=== PATIENT | female | born 1945 | race Caucasian/White ===

== ENCOUNTER 2016-09-19 07:40 | Observation (INO) | payer OTHER, BC ==
--- NOTE | 2016-09-19 07:56 | CPEKG ---
Heart Rate: 56 RR Interval: 1071 P-R Interval: 156 QRSD Interval: 94 QT Interval: 440 QTC Interval: 425 P [place]: 37 QRS [place]: -29 T Wave [place]: 129 EKG Severity - ABNORMAL ECG - EKG Impression: SINUS RHYTHM EKG Impression: PROBABLE LEFT ATRIAL ABNORMALITY EKG Impression: LVH W/ REPOL ABNORMALITIES, POSSIBLE ISCHEMIA Electronically Signed By: Junior Ford 19-Sep-2016 09:38:50
--- NOTE | 2016-09-19 08:03 | EDPHY ---
H & P Time Seen by Provider: 09/19/16 08:01 HPI/ROS: Chief complaint. Chest pain HPI. 71-year-old female presents emergency department with left scapular pain that has been present for several weeks. Yesterday became worse. Previously ibuprofen was helping but yesterday and today it was with an inadequate relief. Today she has radiation to the fingers of her left hand especially fingers 3 through 5. Her discomfort in the left shoulder blade is worse with standing but not worse with exertion or breathing. Today it is increased with range of motion about the left shoulder. She does have occasional anterior chest discomfort which he has had for many years and has not been worse or more frequent over the past 3 weeks. She is not short of breath. Slight nausea yesterday and today. No unusual leg pain or swelling. She had a normal stress test 3 years ago. ROS Constitutional. no fever/chills, no weakness Eyes. no problems with vision ENT. no sore throat, no nasal drainage Cardiovascular. no chest pain Respiratory. no shortness of breath, no cough Abdominal. no abdominal pain, no nausea/vomiting, no diarrhea . no problems urinating MS. Left scapular pain that radiates to the fingers of the left hand Skin. no rash Lymph. no swollen glands Neuro. no headache, no dizziness, no difficulty walking or with speech Past Medical/Surgical History: Past medical history is significant for rheumatic fever, hypertension, insulin- dependent diabetes, breast cancer Social History: , nonsmoker, no alcohol Smoking Status: Never smoked Physical Exam: General Appearance: Alert pleasant well-developed female mild distress vital signs are stable Eyes: Pupils equal and round no pallor or injection. ENT, Mouth: Mucous membranes are moist. Respiratory: There are no retractions, lungs are clear to auscultation. Cardiovascular: Regular rate and rhythm. Gastrointestinal: Abdomen is soft and nontender, no masses, bowel sounds normal. Neurological: Awake and alert, sensory and motor exams grossly normal. Skin: Warm and dry, no rashes. Musculoskeletal: Neck is supple nontender. No particular tenderness to palpation of the left scapula. Extremities symmetrical, full range of motion. Psychiatric: Patient is oriented X 3, there is no agitation. Constitutional: Initial Vital Signs Temperature (C) 36.9 C 09/19/16 07:43 Heart Rate 60 09/19/16 07:43 Respiratory Rate 18 09/19/16 07:43 Blood Pressure 195/94 H 09/19/16 07:43 O2 Sat (%) 96 09/19/16 07:43 O2 Delivery Mode Room Air Allergies/Adverse Reactions: Penicillins Allergy (Verified 09/19/16 11:36) Hives Home Medications: Medication Instructions Recorded Aspirin [Aspirin 81mg (*)] 81 mg PO DAILY 09/19/16 CHOLECALCIFEROL [VITAMIN D] 400 unit PO DAILY 09/19/16 Calcium [HI-JERARDO] 500 mg PO DAILY 09/19/16 Doxycycline Monohydrate 100 mg PO DAILY 09/19/16 Exemestane [Aromasin] 25 mg PO DAILY 09/19/16 Fenofibrate [Tricor 48 MG (RX)] 48 mg PO DAILY 09/19/16 Insulin Detemir [Levemir Flextouch] 48 - 51 unit SQ HS 09/19/16 Insulin Lispro [Humalog Kwikpen 15 - 35 units SQ TIDMEAL 09/19/16 U-100] Krill Oil 500 mg PO DAILY 09/19/16 Lisinopril [Zestril 40 mg (*)] 40 mg PO BID 09/19/16 Metoprolol Succinate Xr [Toprol Xl 100 mg PO DAILY 09/19/16 100 mg (*)] Simvastatin 20 mg PO HS 09/19/16 Spironolactone [Aldactone 25 MG 12.5 mg PO DAILY 09/19/16 (*)] metFORMIN HCL [Glucophage 500 mg 1,000 mg PO BID 09/19/16 (*)] Medical Decision Making - Diagnostics EKG Interpretation: EKG interpreted by me shows normal sinus rhythm with left axis deviation normal interval. QRS shows LVH by voltage. There are inverted T-waves in leads 1 and aVL as well as anterior leads. No significant ST elevation or depression. Rate is 56 Imaging Results: Imaging Impressions Chest X-Ray 09/19/16 08:24 Impression: 1. Borderline cardiomegaly. 2. No active cardiopulmonary disease seen. Chest/Thorax CTA 09/19/16 10:48 Impression: 1. No evidence of pulmonary embolus using CT protocol. 2. No significant abnormality seen within the chest. 3. Calcified granuloma superior segment left lower lobe with calcified left hilar nodes. Findings discussed with Junior Ford M.D. at 12:20 hour, 09/19/2016. Chest x-ray interpreted by me shows LVH but no pneumonia Procedures: IV normal saline, monitor ED Course/Re-evaluation: Recheck at 9:35 a.m. patient is stable We tried to obtain old EKGs from a [facility] but have been unable. The patient, her , and I discussed imaging lab EKG findings. We discussed treatment plan including recommendation for admission. She expresses understanding and agreement I consulted and discussed the case with Dr. Victoria, hospitalist, who agrees to the admission Differential Diagnosis: Certainly this would appear to be atypical chest discomfort. However the patient has multiple risk factors including insulin-dependent diabetes. She has an abnormal EKG that is suspicious for ischemia. I have considered acute coronary syndrome, pneumonia as well as musculoskeletal. - Data Points Laboratory Results: Laboratory Results 09/19/16 08:10 09/19/16 08:10 09/19/16 09/19/16 09/19/16 08:10 08:10 08:10 WBC 7.98 10^3/uL 10^3/uL (3.80-9.50) RBC 4.73 10^6/uL 10^6/uL (4.18-5.33) Hgb 14.8 g/dL g/dL (12.6-16.3) Hct 44.1 % % (38.0-47.0) MCV 93.2 fL fL (81.5-99.8) MCH 31.3 pg pg (27.9-34.1) MCHC 33.6 g/dL g/dL (32.4-36.7) RDW 14.1 % % (11.5-15.2) Plt Count 243 10^3/uL 10^3/uL (150-400) MPV 10.1 fL fL (8.7-11.7) Neut % (Auto) 75.5 % H % (39.3-74.2) Lymph % (Auto) 14.7 % L % (15.0-45.0) Saunders % (Auto) 4.8 % % (4.5-13.0) Eos % (Auto) 3.3 % % (0.6-7.6) Baso % (Auto) 0.8 % % (0.3-1.7) Nucleat RBC Rel Count 0.0 % % (0.0-0.2) Absolute Neuts (auto) 6.04 10^3/uL 10^3/uL (1.70-6.50) Absolute Lymphs (auto) 1.17 10^3/uL 10^3/uL (1.00-3.00) Absolute Monos (auto) 0.38 10^3/uL 10^3/uL (0.30-0.80) Absolute Eos (auto) 0.26 10^3/uL 10^3/uL (0.03-0.40) Absolute Basos (auto) 0.06 10^3/uL 10^3/uL (0.02-0.10) Absolute Nucleated RBC 0.00 10^3/uL 10^3/uL (0-0.01) Immature Gran % 0.9 % % (0.0-1.1) Immature Gran # 0.07 10^3/uL 10^3/uL (0.00-0.10) D-Dimer < 0.27 ug/mLFEU ug/mLFEU (0.00-0.50) Sodium 141 mEq/L mEq/L (134-144) Potassium 4.5 mEq/L mEq/L (3.5-5.2) Chloride 108 mEq/L mEq/L (97-110) Carbon Dioxide 19 mEq/l L mEq/l (22-31) Anion Gap 14 mEq/L mEq/L (8-16) BUN 16 mg/dL mg/dL (7-23) Creatinine 0.8 mg/dL mg/dL (0.6-1.0) Estimated GFR > 60 Glucose 179 mg/dL H mg/dL (70-100) Calcium 9.5 mg/dL mg/dL (8.5-10.4) Troponin I < 0.012 ng/mL ng/mL (0-0.034) NT-Pro-B Natriuret Pep 523 pg/mL H pg/mL (0-125) Departure - Departure Disposition: [facility] Acute Clinical Impression: Acute coronary syndrome Condition: Fair
[2016-09-19 08:29] LABS: % IMMATURE GRANULYOCYTES 0.9 % (0.0-1.1); ABSOLUTE IMMATURE GRANULOCYTES 0.07 10^3/uL (0.00-0.10); ADD DIFF? NO; ADD MORPH? NO; ADD SCAN? NO; ATYPICAL LYMPHOCYTE FLAG 0 (0-99); FRAGMENT RBC FLAG 0 (0-99); HEMATOCRIT 44.1 % (38.0-47.0); HEMOGLOBIN 14.8 g/dL (12.6-16.3); LEFT SHIFT FLG 0 (0-99); LIPEMIA HEMOLYSIS FLAG 80 (0-99); MEAN CELL HEMOGLOBIN 31.3 pg (27.9-34.1); MEAN CELL HEMOGLOBIN CONCENTR. 33.6 g/dL (32.4-36.7); MEAN CELL VOLUME 93.2 fL (81.5-99.8); MEAN PLATELET VOLUME 10.1 fL (8.7-11.7); PLATELET CLUMPS FLAG 50 (0-99); PLATELET COUNT 243 10^3/uL (150-400); RED BLOOD CELL COUNT 4.73 10^6/uL (4.18-5.33); RED CELL DISTRIBUTION WIDTH 14.1 % (11.5-15.2)
[2016-09-19 08:39] LABS: ANION GAP 14 mEq/L (8-16); CALCIUM 9.5 mg/dL (8.5-10.4); CARBON DIOXIDE 19 mEq/l (22-31); CHLORIDE 108 mEq/L (97-110); CREATININE 0.8 mg/dL (0.6-1.0); GLOMERULAR FILTRATION RATE > 60; GLUCOSE 179 mg/dL (70-100); POTASSIUM 4.5 mEq/L (3.5-5.2); SODIUM 141 mEq/L (134-144)
[2016-09-19 08:50] LABS: TROPONIN I < 0.012 ng/mL (0-0.034)
[2016-09-19] MEDS ORDERED: IOPAMIDOL (ISOVUE 370) 100 ML BTL IV ONE (11:08)
--- NOTE | 2016-09-19 12:03 | ECHO ---
[id number] + + [address] : : [place] [address] : : [phone] + + Adult Echocardiographic Report + + :Name: FAROOQ ESPANA Date: 09/19/2016 11:18 AM : : Hospital Admission Number: [id number] ocation: ER16: :: 1945 Gender: Female Height: 6 5 in : :Age: 71 yrs Race: WH Weight: 1 75 lb : :Reason For Study: Eval LV Fx : : BSA: 1.9 meters2 : :History: Chest Pain, Abnormal EKG : + + MMode/2D Measurements \T\ Calculations IVSd: 1.0 cm LVIDd: 5.3 cm FS: 34.2 % Ao root diam: 2.9 cm LVPWd: 1.0 cm LVIDs: 3.5 cm EDV(Teich): 134.8 ml ACS: 1.6 cm ESV(Teich): 50.2 ml EF(Teich): 62.8 % Normal Measurement Values: + + :LVIDd (3.5-5.7cm) IVSd (0.6-1.1cm) LVPWd (0.6-1.1cm) Aortic Root (2.0-3.7cm)Left Atrium (1.5-4.0cm): :LV Vol(d) (76-115ml) LV Vol(s) (29-48ml) Ejec Fraction (50-65%)PV Venkata (0.6- 1.2m/s) TV Venkata (0.4-1.0m/s) : :MV E Venkata (0.8-1.0m/s)MV A Venkata (0.3-1.0m/s)LVOT Venkata (0.7-1.2m/s) Asc Ao Venkata ( 0.9-1.8m/s) : + + Doppler Measurements \T\ Calculations MV E max venkata: Ao V2 max: LV V1 max: PA V2 max: 111.0 cm/sec 157.0 cm/sec 106.0 cm/sec 102.0 cm/sec MV A max venkata: Ao max P.9 mmHgLV V1 max PG: PA max P.3 cm/sec 4.5 mmHg 4.2 mmHg MV E/A: 1.2 PI end-d venkata: TR max venkata: 111.0 cm/sec 214.0 cm/sec TR max P.3 mmHg RAP systole: 5.0 mmHg RVSP(TR): 23.3 mmHg Left Ventricle The left ventricle is normal in size. There is normal left ventricular wall thickness. The left ventricular ejection fraction is normal. There is Doppler evidence for diastolic dysfunction. Ejection Fraction = 65%. No regional wall motion abnormalities noted. Right Ventricle The right ventricle is normal in size and function. Atria Mild left atrial enlargement. Right atrial size is normal. Mitral Valve Mild calcification of MV leaflets with no MV prolapse. There is no evidence of mitral valve prolapse. There is no mitral valve stenosis. There is trace mitral regurgitation. Tricuspid Valve Normal tricuspid valve. There is trace tricuspid regurgitation. Right ventricular systolic pressure is normal. Aortic Valve The aortic valve is normal in structure and function. The aortic valve is trileaflet. There is no aortic stenosis. Trace aortic regurgitation. Pulmonic Valve The pulmonic valve is normal in structure and function. There is no pulmonic valvular regurgitation. Great Vessels The aortic root is normal size. Pericardium/Pleural Prominent anterior pericardial fat pad vs small pericardial effusion. No tamponade physiology noted. Conclusion A complete two-dimensional transthoracic echocardiogram was performed (2D, M-mode, Doppler and color flow Doppler). 1)Normal LV size and systolic function with a LVEF of 65% and normal wall motions. 2)Borderline concentric LVH with mild diastolic dysfunction. 3)Mild left atrial enlargement. 4)Trivial MR without MV prolapse. 5)Trivial TR noted. 6)Prominent pericardial fat pad vs small pericardial effusion. No tamponade noted. Final Reading Physician: Mick Amin electronically signed on 09/19/2016 12:02 PM Ordering Physician: MALINA PICKETT Performed By: Marco Laws, CS
[2016-09-19] MEDS ORDERED: ONDANSETRON DISINTEGRATING 4 MG TAB PO PRN (12:07)
[2016-09-19] MEDS ORDERED: ONDANSETRON 4 MG/2 ML VIAL IVP PRN (12:07)
[2016-09-19] MEDS ORDERED: ACETAMINOPHEN 325 MG TAB PO PRN (12:07)
--- NOTE | 2016-09-19 15:24 | GHP ---
[f rep st] HISTORY AND PHYSICAL DATE OF ADMISSION: 09/19/2016 CHIEF COMPLAINT: Left shoulder pain, concern for angina equivalent. HISTORY OF PRESENT ILLNESS: A pleasant 71-year-old female with history of diabetes, hypertension, hyperlipidemia and breast cancer, who presents with progressive left shoulder pain. States she has had a twinge-like pain in her left shoulder for the last few weeks, which she noticed here and there was relieved with Advil. This pain has gotten worse to the point yesterday it was radiating down her arm and not relieved with Advil. She states it feels like a nerve pain. She has some tingling in her fingers, which she says has actually been going on for several years but worse over the last couple days. The pain is worse with movements, like an electric shock. It quiets to a dull ache with lying still. Says she can no longer hold a book. Yesterday, when the pain became severe, she had some mild nausea but no associated shortness of breath, dizziness or lightheadedness. She has 14 steps into her home and then 12-15 upstairs, and she does not get chest pain with that. She will have mild shortness of breath with the stairs, but this is not new. Denies PND, lower extremity edema and orthopnea. States she had a normal exercise treadmill 3 years ago, prior to her breast surgery. REVIEW OF SYSTEMS: I completed a 10-point review. Negative except as noted in HPI. PAST MEDICAL HISTORY: Hypertension, diabetes, hyperlipidemia, breast cancer ( status post mastectomy, on hormone therapy). PAST SURGICAL HISTORY: Bilateral mastectomy. FAMILY HISTORY: Mother and two maternal aunts with breast cancer. CVA on both sides. Dad with a CVA. SOCIAL HISTORY: Lives in [place] with her . No drugs, no alcohol or tobacco. MEDICATIONS: At home: Metformin 1000 mg b.i.d.; Spironolactone 12.5 mg daily; simvastatin 20 mg daily; Toprol 100 mg daily; Zestril 40 mg b.i.d.; Krill oil; lispro sliding scale; Detemir, 48-51 units daily; TriCor; Aromasin 25 mg daily; doxycycline daily; vitamin D; and baby aspirin. ALLERGIES: Penicillin. PHYSICAL EXAMINATION: VITAL SIGNS: Temperature 37.3, blood pressure 164/80, heart rate in the 50s, respirations 18, 93% on room air. GENERAL: Well- appearing female in no acute distress. HEENT: PERRLA, EOMI. Oropharynx clear. CARDIOVASCULAR: Regular, bradycardic, no murmurs, gallops or rubs. No lower extremity edema. LUNGS: Clear to auscultation; no crackles or wheezing. ABDOMEN: Soft, nontender, nondistended. Positive bowel sounds. : No suprapubic tenderness. MUSCULOSKELETAL: 5/5 upper and lower extremity strength. Mild tenderness to palpation over left scapula, similar to some of her pain. Reports electrical pain when adducting or abducting her arm. NEURO: Normal sensation to touch, no focal deficits, 2 through 12 intact. PSYCH: Alert and oriented x3. LABORATORY DATA: WBC 7.9, hemoglobin 14, hematocrit 44, platelets 243. D- dimer is less than 0.27. Sodium 141, potassium 4.5, chloride 108, carbon dioxide 19. Creatinine 0.8, glucose 179. Calcium 9.5. Troponin less than 0.012. BNP is 523. RADIOGRAPHIC DATA: In the emergency room, there was concern for dissection. The patient underwent CTA, which was negative for dissection and PE. ASSESSMENT AND PLAN: 1. Left shoulder pain:. Initial concern for angina equivalent. Had a CTA in the emergency room, which was negative for pulmonary embolism and dissection. The patient does have risk factors for cardiovascular disease; however, her story is not consistent with acute coronary syndrome. Initial troponin negative. She does have T wave inversions in anterior leads, trying to obtain an old to compare. Will repeat both these. Monitor on telemetry. If these are normal to reasonable, will check a stress as an outpatient as I feel pain is more likely radiculopathy. Will evaluate further with an MRI. Will trial low-dose gabapentin this evening. 2. Controlled diabetes: glargine and sliding scale insulin. 3. Hypertension. Elevated here but suspect pain is contributing. Will provide p.r.n. Advil and initiate gabapentin as stated above. 4. Hyperlipidemia. Statin. 5. Cardiac diet. 6. Deep vein thrombosis prophylaxis. Lovenox. 7. The patient warrants an observation admission given acute left shoulder pain , concerning for acute coronary syndrome versus radiculopathy. Will monitor on telemetry, check serial troponins and EKG and an MRI. /[id number]/MODL MTDD
--- NOTE | 2016-09-19 16:21 | CPEKG ---
Heart Rate: 65 RR Interval: 923 P-R Interval: 152 QRSD Interval: 100 QT Interval: 428 QTC Interval: 445 P [place]: 42 QRS [place]: 20 T Wave [place]: 111 EKG Severity - ABNORMAL ECG - EKG Impression: SINUS RHYTHM EKG Impression: PROBABLE LVH WITH SECONDARY REPOL ABNRM EKG Impression: ST/T WAVE CHANGES ARE LESS PROMINANT Electronically Signed By: Frank Pires 21-Sep-2016 12:25:46
[2016-09-19] MEDS: IBUPROFEN 600 MG TAB PO PRN (18:10)
[2016-09-19] MEDS: LISINOPRIL 40 MG TAB PO SCH (19:32)
[2016-09-19] MEDS ORDERED: NON-FORMULARY NEW DRUG (Simvastatin [Simvastatin] 20 MG) PO SCH (21:00)
[2016-09-19] MEDS ORDERED: INSULIN GLARGINE 100 UNITS/ML SYRINGE SC SCH (21:00)
[2016-09-19] MEDS ORDERED: GABAPENTIN 300 MG CAP PO SCH (21:00)
[2016-09-19] MEDS ORDERED: metFORMIN HCL 500 MG TAB PO SCH (21:00)
[2016-09-19] MEDS ORDERED: ATORVASTATIN CALCIUM 10 MG TAB PO SCH (21:00)
[2016-09-19] MEDS ORDERED: D50W 25 GM/50 ML SYR IVP PRN (21:24)
[2016-09-20] MEDS: IBUPROFEN 600 MG TAB PO PRN ×2 (02:59→10:08)
[2016-09-20 07:15] VITALS: BP 181/63; PULSE 55; RESP 15; TEMP 98.3; O2SAT 92
[2016-09-20] MEDS: LISINOPRIL 40 MG TAB PO SCH (07:55)
[2016-09-20] MEDS ORDERED: INSULIN LISPRO 100 UNIT/ML SC SCH (08:00)
--- NOTE | 2016-09-20 08:35 | HOSPPROG ---
Hospitalist Progress Note Assessment/Plan: #Severe cervical stenosis: diagnosed on MRI #Left shoulder/arm pain: due to above. Trial gabapentin. PT outpatient. FU NSGY. Sxs not c/w ACS. Negative trops, EKG #HTN: cont home meds #HLD: statin #DM: glargine, SSI #Risk stratification: consider stress outpatient with personal/family risk factors. #Disp: DC today with NSGY FU Subjective: pain improved with Gabapentin, slept well Objective: Vital Signs Temp Pulse Resp BP Pulse Ox 36.8 C 55 L 15 181/63 H 92 09/20/16 07:14 09/20/16 07:14 09/20/16 07:14 09/20/16 07:14 09/20/16 07:14 09/19/16 09/20/16 09/21/16 05:59 05:59 05:59 Intake Total 250 Balance 250 - Physical Exam Constitutional: no apparent distress Eyes: PERRL Ears, Nose, Mouth, Throat: moist mucous membranes Cardiovascular: regular rate and rhythym Respiratory: no respiratory distress Gastrointestinal: normoactive bowel sounds Genitourinary: no bladder fullness Skin: warm Musculoskeletal: other (pain down arm induced with adduction/abduction) Neurologic: AAOx3, CN II-XII Intact Psychiatric: interacting appropriately ICD10 Worksheet Patient Problems: Problems Problem Status Onset Acute coronary syndrome Acute
[2016-09-20] MEDS ORDERED: CALCIUM CARBONATE 500 MG TAB PO SCH (09:00)
[2016-09-20] MEDS ORDERED: ENOXAPARIN 40 MG/0.4 ML SYR SC SCH (09:00)
[2016-09-20] MEDS ORDERED: DOXYCYCLINE HYCLATE 100 MG CAP/TAB PO SCH (09:00)
[2016-09-20] MEDS ORDERED: CALCIUM 500 MG PO SCH (09:00)
[2016-09-20] MEDS ORDERED: FENOFIBRATE 48 MG TAB PO SCH (09:00)
[2016-09-20] MEDS ORDERED: METOPROLOL SUCCINATE XR 100 MG TAB PO SCH (09:00)
[2016-09-20] MEDS ORDERED: DOXYCYCLINE MONOHYDRATE 100 MG PO SCH (09:00)
[2016-09-20] MEDS ORDERED: SPIRONOLACTONE 25 MG TAB PO SCH (09:00)
[2016-09-20] MEDS ORDERED: ASPIRIN 81 MG CHEWABLE TAB PO SCH (09:00)
[2016-09-20] MEDS ORDERED: CHOLECALCIFEROL 400 UNIT PO SCH ×2 (09:00)
[2016-09-20] MEDS ORDERED: (Krill Oil [Krill Oil] 500 MG) PO SCH (09:00)
[2016-09-20] MEDS ORDERED: KRILL OIL 500 MG PO SCH (09:00)
[2016-09-20] MEDS ORDERED: EXEMESTANE 25 MG TAB PO SCH (09:00)
--- NOTE | 2016-09-20 10:56 | GDS ---
[f rep st] DISCHARGE SUMMARY DISCHARGE DIAGNOSES: 1. Left arm/shoulder pain, concern for angina. 2. Severe cervical stenosis. 3. Hypertension. 4. Hyperlipidemia. 5. Diabetes. HISTORY: The patient is a 71-year-old female with a history of hypertension, hyperlipidemia, diabetes presenting with progressive left shoulder pain. She states the pain was twinge like initially, starting a few weeks ago, which she noticed here and there and that was relieved by Advil. The pain has gotten worse, especially with movements, to the point that it is radiating down her arm. She feels like it is a nerve pain and has some tingling in her fingers but that is not new, that has been going on for several years but worse over the last couple days. The pain quiets to a dull ache when lying still. The pain became so severe with some mild nausea, so she came to the emergency room. HOSPITAL COURSE BY PROBLEM: 1. Left arm/shoulder pain: Initial concern for anginal equivalent. However, further history and exam suspected radiculopathy. This was confirmed on MRI showing severe cervical canal stenosis. Troponin and EKG were negative. Had a discussion with the patient and recommended trialing gabapentin. Suggested a Medrol Josep, which she declined. Wrote a script for physical therapy and Dr. Urrutia's office will call for an outpatient appointment. 2. Hypertension: Resume home medications. 3. Diabetes: Glargine sliding scale insulin. 4. Hyperlipidemia: Statin. Given personal risk factors and family history, would recommend outpatient stress at some point. DISPOSITION: Patient is stable for discharge. NEW MEDICATIONS: Gabapentin. FOLLOWUP: 1. Dr. Urrutia with Neurosurgery. 2. PCP for stress as an outpatient. 3. PT. Greater than 35 min counseling patient and coordinating FU and discharge. /[id number]/MODL MTDD
[2016-09-21] MEDS ORDERED: metFORMIN HCL 500 MG TAB PO SCH (18:00)
== END 2016-09-20 12:00 | disposition home or self-care (01) ==
LOC: INTOOBSV 10:49 → F3N 12:12
PROVIDERS: ADMIT Internal Medicine Pulmonary Disease; ATTEND Internal Medicine
DX: M25.512 Pain in left shoulder (principal); M79.602 Pain in left arm; M48.02 Spinal stenosis, cervical region; M50.30 Other cervical disc degeneration, unspecified cervical region; I10 Essential (primary) hypertension; E78.5 Hyperlipidemia, unspecified; E11.9 Type 2 diabetes mellitus without complications; Z86.19 Personal history of other infectious and parasitic diseases; Z85.3 Personal history of malignant neoplasm of breast; Z82.3 Family history of stroke; Z79.890 Hormone replacement therapy; Z79.4 Long term (current) use of insulin; Z90.13 Acquired absence of bilateral breasts and nipples; Z88.0 Allergy status to penicillin
CPT/HCPCS: 71010; 71275; 72141; 93005; 93306; G0378; J1650; J1815; Q9967

== ENCOUNTER 2016-09-30 09:36 | Inpatient (IN) | payer OTHER, BC ==
[2016-09-30] MEDS ORDERED: ceFAZolin 2 GM/DEXTROSE 100 ML IV ONE (12:37)
[2016-09-30] MEDS ORDERED: CHLORHEXIDINE GLUC HIBICLENS 118 ML BTL TP ONE (12:40)
[2016-09-30] MEDS ORDERED: THROMBIN (BOVINE) 5,000 UNIT VIAL TP ONE (12:40)
[2016-09-30] MEDS ORDERED: BUPIVACAINE/EPI 0.25% 30 ML SDV ONE (12:40)
[2016-09-30] MEDS ORDERED: SURGIFLO MATRIX KIT WITH THROMBIN TP ONE (12:40)
[2016-09-30] MEDS ORDERED: BACITRACIN 50,000 UNITS/10 ML SYR IRR ONE (12:40)
[2016-09-30] MEDS ORDERED: DEXAMETHASONE 4 MG/ML VIAL ONE (13:15)
[2016-09-30] MEDS ORDERED: ROCURONIUM 50 MG/5 ML VIAL ONE (13:15)
[2016-09-30] MEDS ORDERED: fentaNYL 100 MCG/2 ML INJ ONE ×2 (13:16→18:45)
[2016-09-30] MEDS ORDERED: REMIFENTANIL HCL 1 MG VIAL ONE ×3 (13:16→13:17)
[2016-09-30] MEDS ORDERED: PROPOFOL 200 MG/20 ML VIAL ONE (13:17)
[2016-09-30] MEDS ORDERED: PROPOFOL/EMULSION 500 MG/50 ML BOTTLE IV ONE ×2 (13:17→16:11)
[2016-09-30] MEDS ORDERED: LIDOCAINE 2% 5 ML SDV ONE (13:26)
--- NOTE | 2016-09-30 13:40 | PDANEPAE ---
ANE History of Present Illness Patient presents for ACDF ANE Past Medical History - Cardiovascular History Hx Hypertension: Yes Hx Coronary Artery / Peripheral Vascular Disease: Yes - Pulmonary History Hx Oxygen in Use at Home: No Hx Sleep Apnea: Yes Sleep Apnea Screening Result - Last Documented: Positive - Endocrine History Hx Diabetes: Yes ANE Review of Systems - Exercise capacity Exercise capacity: limited by disability ANE Patient History - Allergies Allergies/Adverse Reactions: Penicillins Allergy (Verified 09/19/16 11:36) Hives - Home Medications Home medications: home medication list seen and reviewed Home Medications: Aspirin [Aspirin 81mg (*)] 81 mg PO DAILY 09/19/16 [Last Taken 09/23/16] Doxycycline Monohydrate 100 mg PO DAILY 09/19/16 [Last Taken 09/30/16 08:30] Exemestane [Aromasin] 25 mg PO DAILY 09/19/16 [Last Taken 09/29/16 21:00] Fenofibrate [Tricor] 48 mg PO DAILY 09/19/16 [Last Taken 09/29/16 21:00] Insulin Detemir [Levemir Flextouch] 48 - 51 unit SQ HS 09/19/16 [Last Taken 10/08 21:00 30] Insulin Lispro [Humalog Kwikpen U-100] 15 - 35 units SQ TIDMEAL 09/19/16 [Last Taken 09/29/16 19:00 34] Lisinopril [Zestril 40 mg (*)] 40 mg PO BID 09/19/16 [Last Taken 09/30/16 08:30] Metoprolol Succinate Xr [Toprol Xl 100 mg (*)] 100 mg PO DAILY 09/19/16 [Last Taken 09/29/16 21:00] Simvastatin 20 mg PO HS 09/19/16 [Last Taken 09/29/16 21:00] Spironolactone [Aldactone 25 MG (*)] 25 mg PO DAILY 09/19/16 [Last Taken 08:30] metFORMIN HCL [Glucophage 500 mg (*)] 1,000 mg PO BID 09/19/16 [Last Taken 09/30 08:30] Calcium Carbonate [Oyster Shell Calcium 500 mg (*)] 500 mg PO DAILY 09/29/16 [ Last Taken 09/23/16] Gabapentin [Neurontin 300 MG (*)] 300 mg PO BID 09/29/16 [Last Taken 09/30/16 08 :30] Herbals/Supplements -Info Only 1 each PO DAILY 09/29/16 [Last Taken 09/23/16] oxyCODONE IR [Oxycodone Ir (*)] 5 mg PO Q6HRS PRN 09/29/16 [Last Taken 09/30/16 10:00] - NPO status NPO Status: no food or drink >8 hours NPO Since - Liquids (Date): 09/29/16 NPO Since - Liquids (Time): 20:00 NPO Since - Solids (Date): 09/29/16 NPO Since - Solids (Time): 18:00 - Anes Hx Anes Hx: no prior problems - Smoking Hx Smoking Status: Never smoked ANE Labs/Vital Signs - Vital Signs Vital Signs: reviewed preoperatively; see RN documention for details Blood Pressure: 151/64 Heart Rate: 58 Respiratory Rate: 20 O2 Sat (%): 85 Height: 165.1 cm Weight: 79.379 kg ANE Physical Exam - Airway Neck exam: decreased ROM Mallampati Score: Class 2 Mouth exam: small mouth opening - Pulmonary Pulmonary: no respiratory distress - Cardiovascular Cardiovascular: regular rate and rhythym - ASA Status ASA Status: III
[2016-09-30] MEDS ORDERED: LR 1,000 ML IV ONE (13:46)
[2016-09-30] MEDS ORDERED: LIDOCAINE 1% 2 ML INJ ID PRN (13:46)
[2016-09-30 13:55] LABS: INR 1.06 (0.83-1.16); PROTIME(PATIENT) 13.7 SEC (12.0-15.0)
[2016-09-30 13:56] LABS: APTT 25.2 SEC (23.0-38.0)
--- NOTE | 2016-09-30 14:08 | PDHPUP ---
History & Physical Update H&P update statement: This history and physical update is based on an assessment of the patient which was completed after admission or registration (within 24 hours), but prior to the surgery/procedure. H&P update: H&P reviewed & patient examined, no change in patient's condition since H&P completed
[2016-09-30] MEDS ORDERED: HYDROmorphONE/DILAUDID 2 MG/ML INJ ONE (16:12)
[2016-09-30] MEDS ORDERED: OXYCODONE/APAP 5/325 TAB PO PRN ×2 (16:31→18:17)
[2016-09-30] MEDS ORDERED: NALOXONE HCL 0.4 MG/ML INJ IVP PRN ×2 (16:31→18:17)
[2016-09-30] MEDS ORDERED: ONDANSETRON 4 MG/2 ML VIAL IVP PRN ×3 (16:31→18:18)
[2016-09-30] MEDS ORDERED: D5W LR 500 ML IV PRN ×2 (16:31→18:17)
[2016-09-30] MEDS ORDERED: HYDROmorphONE/DILAUDID 1 MG/ML SYR IVP PRN ×2 (16:31→18:17)
[2016-09-30] MEDS ORDERED: fentaNYL 100 MCG/2 ML INJ IVP PRN ×2 (16:31→18:17)
[2016-09-30 16:45] LABS: BICARBONATE 22 mEq/L (22-26); MEASURED OXYGEN SATURATION 97 % (92-95); PCO2 38 mmHg (34-38); PO2 104 mmHg (65-75); TCO2 23 mEq/L (23-27)
[2016-09-30 17:06] LABS: GLUCOSE 87 mg/dL (70-100)
[2016-09-30] MEDS ORDERED: ONDANSETRON DISINTEGRATING 4 MG TAB PO PRN (18:18)
[2016-09-30] MEDS ORDERED: MAGNESIUM HYDROXIDE 30 ML UDCUP PO PRN (18:18)
[2016-09-30] MEDS ORDERED: BISACODYL 10 MG SUPP PR PRN (18:18)
[2016-09-30] MEDS ORDERED: POLYETHYLENE GLYCOL 3350 17 GM PKT PO PRN (18:18)
[2016-09-30] MEDS ORDERED: LACTULOSE 20 GM/30 ML UDCUP PO PRN (18:18)
[2016-09-30] MEDS ORDERED: METHOCARBAMOL 750 MG TAB PO PRN (18:18)
[2016-09-30] MEDS ORDERED: diphenhydrAMINE 25 MG CAP PO PRN (18:18)
[2016-09-30] MEDS ORDERED: NS 1,000 ML IV SCH (18:30)
--- NOTE | 2016-09-30 18:38 | POSTOPPROG ---
Post Op Note Date of Operation: 09/30/16 Surgeon: Dione Salazar Percussion Instrument Repairer: Oliva Nunez PA-C Anesthesia: GET(General Endotracheal) Pre-op Diagnosis: Cervical stenosis Post-op Diagnosis: Cervical stenosis Procedure: ACDF C4-7 Inf/Abcess present in the surg proc area at time of surgery?: No Depth: Deep Incisional (Fascial) EBL: 50-100 Drains: Dale Mckinney Plan Plan: 71 yo female s/p ACDF C4-7 - neuro checks - hard collar - LAVELL x 1 - postop c-spine x-rays pending - dc angel tomorrow - PT/OT/ST Exam Muscle strength full at 5/5 Sensation intact
--- NOTE | 2016-09-30 18:43 | POSTANESTH ---
Post Anesthetic Evaluation Cardiovascular Status: Normal, Stable Respiratory Status: Normal, Stable Level of Consciousness/Mental Status: Mildly Sleepy, Arousable Pain Control: Adequate, Prn Tx Ordered Nausea/Vomiting Control: Adequate, Prn Tx Ordered Complications Possibly Related to Anesthesia: None Noted
--- NOTE | 2016-09-30 19:31 | GOP ---
[f rep st] OPERATIVE REPORT DATE OF OPERATION: 09/30/2016 SURGEON: Dione Salazar DO HYDROTREATER OPERATOR: Uyen Dotson PA-C. PREOPERATIVE DIAGNOSIS: 1. Cervical spondylitic myelopathy. 2. Cervical stenosis. 3. Radiculopathy. POSTOPERATIVE DIAGNOSIS: 1. Cervical spondylitic myelopathy. 2. Cervical stenosis. 3. Radiculopathy. PROCEDURE PERFORMED: FINDINGS: SPECIMENS: None. ESTIMATED BLOOD LOSS: 50 mL. INDICATIONS: This is a 71-year-old female who presented initially with severe left radiculopathy, s ome mild myelopathy. MRI revealed critical stenosis at C4-5 and C5-6 and less so at C6-7. She was clear to move forward with an anterior cervical diskectomy and fusion at these levels for cervical d ecompression. She was identified consented. Sites were marked. It should be noted preoperatively that the patient did mention that she has baseline swallowing difficulties. DESCRIPTION OF PROCEDURE: Brought to the operating room, anesthetized under general endotracheal an esthesia, placed on the OR bed. Prepositioning baselines were performed and then an intrascapular r oll and traction were placed on the shoulders. Head was placed in a neutral position in a Castrejon horseshoe and post positioning baselines were stable. Incision site was marked using a lateral x-ra y and blunt needle taped to the skin. Once the incision site was marked she was prepped and draped in the usual sterile fashion. Incision was anesthetized with 0.5% Marcaine with epinephrine. Incis ion was made with a 10 blade. Hemostasis was obtained with bipolar cautery. Then using DeBakey and Metzenbaum dissected through the platysma in a horizontal fashion coming down on the medial border of the SCM in an avascular plane. Retracted the trachea and esophagus medially. The carotid artery was palpated and actually visualized and retracted laterally. Coming down on the anterior aspect o f the spine, cleared this prevertebral fascia with Kittwayne's. Placed an 18-gauge spinal needle, we were at the C5-6 level, this was marked with the Bovie. We then dissected upwards with a Isabelle pr otecting with a handheld Cloallan's placing an 18-gauge bayoneted spinal needle and taking an x-ray m arking the C4-5 level and then dissected inferiorly with Isabelle's clearing the prevertebral fascia protecting the lateral armstrong with the handheld Cloward, placed the a bayoneted spinal needle and mar ked the C6-7 disk space. We then cleared the soft tissue and the longus coli bilaterally with Fadi springer's and then measured and placed a Shadow-Line retractor placed 14 mm Flinton pins at C4 and C5. To ok an x-ray. Verified we were in good position. Placed the patient under distraction, brought in t he microscope, drilled off the anterior osteophytes, and then using the high-speed drill removed the disk and cartilaginous endplate until we came onto the posterior longitudinal ligament which was op ened. She had this very tenacious and thick posterior longitudinal ligament. We cleared the PLL wi th 2 cores from the superior and inferior endplate now bilateral-lateral foramen until foraminal fat was visualized and the black nerve hook verified that we had good foraminal decompression. We then harvested bone graft superiorly and anteriorly, and then measured 8 mm graft, packed with some Gorge ton DBM and the patient's own bone, tamped it into place. Took an x-ray, verified it was in the dex ropriate position. Neuro monitoring remained stable. Removed the Flinton pin superiorly and plugged it with a Gelfoam bullet. Moved the retractors down 1 level, placed the Flinton pin at the C6 level , and place distraction, verified we were in good position under x-ray, and then using the high-spee d drill removed the disk and cartilaginous endplate superiorly and inferiorly coming down on the pos terior longitudinal ligament which was opened with micro upgoing curette and then using 1 Kerrison a nd then a 2 Koros until we had completely decompressed. This actually required a partial corpectomy at the C5 level by the time we were completed to completely clear the compressive disk and osteophy te, then out bilateral lateral foramina until foraminal fat was identified and then using the black nerve hook we verified the foramina were well decompressed. We measured a 10 mm graft secondary to the partial corpectomy at this level and packed it with Bria and the patient's own bone, tamped i nto place. Neuro monitoring was stable. X-ray revealed hardware is in good position. We removed t he Flinton pin from the C5 level and plugged this with Gelfoam bullet. Moved the retractors down to the C6-7 level, placed the Flinton pin at C7, and verified it was in good position. Placed the patie nt under distraction. Used the high-speed drill to remove the disk and cartilaginous endplate super iorly and inferiorly. Opening the posterior ledge of the ligament with a micro upgoing curette then using the 1 Kerrison to exhume fix this and the 2 Koros until we had fully decompressed the superio r and inferior endplates and a bilateral-lateral foramina verifying this with a black nerve hook and visualizing the foraminal fat. Once we had well decompressed, we harvested the patient's own bone, measured a 9 mm Medtronic interbody graft and placed Empire and the patient's own bone, tamped it into place under x-ray and it was in good position, and removed the Flinton pin. Plugged the hole wi th Gelfoam bullet, ensured that all osteophytes were flattened and then measured a 55 mm translation al plate on the left side. We placed the 13 mm screw directly in at this C5 level and then verified we had the appropriate size plate, used the single barrel drill guide superiorly, placed a 13 mm sc rew superiorly, and then at the C6 end and then a single barrel drill guide placing it at C7. Took x-rays and verified all screws on the right side were in good position. We repeated this process on the patient's left side using the drill guide in the appropriate position and 13 mm screws. Once t he screws were well seated we took AP and lateral x-rays and the hardware was well seated. We then copiously irrigated with over a liter of bacitracin-infused saline. Filled the hole in the wound an d ensured there was no obvious air leak and there was none. The armstrong were inspected. The Cloward was removed. The microscope was brought out. The locking mechanism was locked at all of the levels . We inspected armstrong of the incision and they were meticulously dry. We trocar'd a drain out infer iorly and placed it in a prevertebral space and removed the handheld Cloward to close the platysma w ith 3-0 Vicryl pop-offs, subcutaneous layer with 3-0 Vicryl pop-offs. The skin was closed with 4-0 running Monocryl and Steri-Strips. Drain was sutured with a 2-0 Vicryl pop-off and placed to bulb s uction. The wound was dressed with Steri-Strips, gauze, and Medipore tape. The patient was placed in a hard collar. Neuro monitoring was stable. There were no complications. PROCEDURE: 1. C4-5, C5-6, C6-7 anterior cervical diskectomy. 2. C5 partial corpectomy. 3. C4-5, C5-6, C6-7 interbody graft. 4. C4-C7 anterior cervical plating with Encite translational plate and 13 mm screws. 5. Autograft, allograft, neuro monitoring, microscope. FLUIDS: 700 mL of crystalloid. URINE OUTPUT: 500 mL. DRAINS: One LAVELL in the prevertebral space to bulb suction. COMPLICATIONS: None. /[id number]/MODL
[2016-09-30] MEDS: oxyCODONE IR 5 MG TAB PO PRN (22:00)
[2016-09-30] MEDS: LISINOPRIL 40 MG TAB PO SCH (22:03)
[2016-09-30] MEDS: Insulin Lispro [Humalog Kwikpen U-100] SQ SCH (22:23)
[2016-09-30] MEDS: ceFAZolin 2 GM/DEXTROSE 100 ML IV SCH (22:27)
[2016-09-30] MEDS: ATORVASTATIN CALCIUM 10 MG TAB PO SCH (22:33)
[2016-09-30] MEDS: GABAPENTIN 300 MG CAP PO SCH (22:34)
[2016-09-30] MEDS: SENNOSIDES/DOCUSATE SODIUM TAB PO SCH (22:35)
[2016-09-30] MEDS: metFORMIN HCL 500 MG TAB PO SCH (22:35)
[2016-09-30] MEDS: ACETAMINOPHEN 500 MG TAB PO SCH (22:36)
[2016-09-30] MEDS: INSULIN DETEMIR SQ SCH (23:42)
[2016-10-01] MEDS: oxyCODONE IR 5 MG TAB PO PRN ×6 (01:35→23:55)
[2016-10-01] MEDS: ceFAZolin 2 GM/DEXTROSE 100 ML IV SCH (04:54)
[2016-10-01] MEDS: ACETAMINOPHEN 500 MG TAB PO SCH ×3 (05:28→21:28)
[2016-10-01] MEDS: EXEMESTANE 25 MG TAB PO SCH (08:31)
[2016-10-01] MEDS: LISINOPRIL 40 MG TAB PO SCH ×2 (08:32→20:17)
[2016-10-01] MEDS: FENOFIBRATE 48 MG TAB PO SCH (08:32)
[2016-10-01] MEDS: SPIRONOLACTONE 25 MG TAB PO SCH (08:32)
[2016-10-01] MEDS: DOXYCYCLINE HYCLATE 100 MG CAP/TAB PO SCH (08:32)
[2016-10-01] MEDS: SENNOSIDES/DOCUSATE SODIUM TAB PO SCH ×2 (08:33→20:18)
[2016-10-01] MEDS: GABAPENTIN 300 MG CAP PO SCH ×2 (08:33→20:18)
[2016-10-01] MEDS: metFORMIN HCL 500 MG TAB PO SCH ×2 (08:38→20:19)
--- NOTE | 2016-10-01 09:32 | NEUSURGPN ---
Assessment/Plan: 71 yo female s/p ACDF C4-7 POD 1 - neuro checks - continue hard collar - d/c LAVELL today - postop c-spine x-rays pending - PT/OT/ST -Please notify NS with any change in neuro/motor exam -Seen by DR. Salazar and myself Subjective: Denies any new arm pain, numbness, tingling or weakness. Objective: NAD A&Ox3 MAEx4 5/5 and equal in BUE and BLE. Incision c/d/i Catheter Insertion Date: 09/30/16 - Physician Patient Seen by : [facility] Physical Exam - Vitals, I&O, Labs I and O 09/30/16 10/01/16 10/02/16 05:59 05:59 05:59 Intake Total 900 Output Total 810 500 Balance 90 -500 Weight 79.379 kg 79.379 kg Intake: IV Infused (ml) 900 Ns 1,000 ml @ 75 mls/hr 800 IV CONT CORKY Rx#: [id number] ceFAZolin 2 GM/DEXTROSE 100 100 ml @ 200 mls/hr IV Q8HRS CORKY Rx#:[id number] Output: Urine (ml) 750 500 Catheter 750 500 LAVELL Drain Output (ml) 60 Dale Mckinney 60 Other: Number of Voids Catheter 1 Vital Signs Temp Pulse Resp BP Pulse Ox 37.4 C 60 12 164/66 H 90 L 10/01/16 07:30 10/01/16 07:30 10/01/16 07:30 10/01/16 07:30 10/01/16 08:40 Laboratory Results 09/30/16 16:30 ICD10 Worksheet Patient Problems: Problems Problem Status Onset Acute coronary syndrome Acute
[2016-10-01] MEDS: Insulin Lispro [Humalog Kwikpen U-100] SQ SCH ×3 (10:00→18:28)
[2016-10-01] MEDS: METOPROLOL SUCCINATE XR 100 MG TAB PO SCH (10:00)
[2016-10-01] MEDS: ATORVASTATIN CALCIUM 10 MG TAB PO SCH (20:19)
[2016-10-01] MEDS: INSULIN DETEMIR SQ SCH (21:28)
[2016-10-02] MEDS: ACETAMINOPHEN 500 MG TAB PO SCH (05:11)
[2016-10-02] MEDS: oxyCODONE IR 5 MG TAB PO PRN (05:11)
--- NOTE | 2016-10-02 07:21 | NEUSURGPN ---
Date of Surgery: 09/30/16 Post Op Day: 2 Assessment/Plan: 71 yo female s/p ACDF C4-7 POD 2 - neuro checks - continue hard collar - d/c LAVELL today - postop c-spine x-rays stable - PT/OT/ST - Please notify NS with any change in neuro/motor exam - Home today if swallowing is okay Subjective: sitting in bedside chair. having neck pain. no UE symptoms. Objective: Awake. Alert. PERRL. EOMI Muscle strength full at 5/5 Sensation intact Catheter Insertion Date: 09/30/16 - Physician Discussed Patient with : [facility] Physical Exam - Vitals, I&O, Labs I and O 10/01/16 10/02/16 10/03/16 05:59 05:59 05:59 Intake Total 900 Output Total 810 1605 Balance 90 -1605 Weight 79.379 kg Intake: IV Infused (ml) 900 Ns 1,000 ml @ 75 mls/hr 800 IV CONT CORKY Rx#: [id number] ceFAZolin 2 GM/DEXTROSE 100 100 ml @ 200 mls/hr IV Q8HRS CORKY Rx#:[id number] Output: Urine (ml) 750 1600 Catheter 750 500 Toilet 1100 LAVELL Drain Output (ml) 60 5 Dale Mckinney 60 5 Other: Number of Voids Catheter 1 Toilet 2 Vital Signs Temp Pulse Resp BP Pulse Ox 36.7 C 64 18 135/70 H 96 10/01/16 23:44 10/01/16 23:44 10/01/16 23:44 10/01/16 23:44 10/01/16 23:44 Laboratory Results 09/30/16 16:30 ICD10 Worksheet Patient Problems: Problems Problem Status Onset Acute coronary syndrome Acute
[2016-10-02] MEDS: Insulin Lispro [Humalog Kwikpen U-100] SQ SCH ×2 (07:49→12:40)
[2016-10-02 07:59] VITALS: BP 118/53; PULSE 60; RESP 14; TEMP 98.4; O2SAT 90
[2016-10-02] MEDS: SPIRONOLACTONE 25 MG TAB PO SCH (08:00)
[2016-10-02] MEDS: FENOFIBRATE 48 MG TAB PO SCH ×2 (08:00→12:40)
[2016-10-02] MEDS: GABAPENTIN 300 MG CAP PO SCH (08:00)
[2016-10-02] MEDS: LISINOPRIL 40 MG TAB PO SCH (08:00)
[2016-10-02] MEDS: EXEMESTANE 25 MG TAB PO SCH (08:00)
[2016-10-02] MEDS: METOPROLOL SUCCINATE XR 100 MG TAB PO SCH (08:00)
[2016-10-02] MEDS: SENNOSIDES/DOCUSATE SODIUM TAB PO SCH ×2 (08:01→12:41)
[2016-10-02] MEDS: DOXYCYCLINE HYCLATE 100 MG CAP/TAB PO SCH (08:01)
[2016-10-02] MEDS: metFORMIN HCL 500 MG TAB PO SCH (08:01)
[2016-10-03] MEDS ORDERED: ENOXAPARIN 40 MG/0.4 ML SYR SC SCH (09:00)
== END 2016-10-02 13:42 | disposition home or self-care (01) | DRG 472 ==
LOC: F3E 11:38 → F3N 19:33
PROVIDERS: ADMIT Neurological Surgery; ATTEND Neurological Surgery
PROC: 0RT30ZZ Resection of Cervical Vertebral Disc, Open Approach (ICD-10-PCS; principal; 2016-09-30 13:45)
PROC: 4A10X4G Monitoring of Central Nervous Electrical Activity, Intraoperative, External Approach (ICD-10-PCS; principal; 2016-09-30 13:45)
PROC: 0PB30ZZ Excision of Cervical Vertebra, Open Approach (ICD-10-PCS; principal; 2016-09-30 13:45)
PROC: 0RG20A0 Fusion of 2 or more Cervical Vertebral Joints with Interbody Fusion Device, Anterior Approach, Anterior Column, Open Approach (ICD-10-PCS; principal; 2016-09-30 13:45)
DX: M48.02 Spinal stenosis, cervical region (principal); M47.22 Other spondylosis with radiculopathy, cervical region; M47.12 Other spondylosis with myelopathy, cervical region; E11.9 Type 2 diabetes mellitus without complications; I10 Essential (primary) hypertension; Z85.3 Personal history of malignant neoplasm of breast
CPT/HCPCS: 82947-QW; 92526-GN; 92610-GN; 97116-GP; 97161-GP; 97165-GO; 97535-GO; C1713; G8978-GP-CI; G8979-GP-CI; G8980-GP-CI; G8987-GO-CI; G8987-GO-CJ; G8988-GO-CI; G8989-GO-CI; G8996-GN-CI; G8997-GN-CH; J0690; J1100; J1170; J2704; J3010

== ENCOUNTER 2016-10-07 12:47 | Emergency (ER) | payer OTHER, BC ==
[2016-10-07 12:55] VITALS: RESP 16; TEMP 97.7
--- NOTE | 2016-10-07 13:16 | CPEKG ---
Heart Rate: 52 RR Interval: 1154 P-R Interval: 144 QRSD Interval: 102 QT Interval: 548 QTC Interval: 510 P [place]: 38 QRS [place]: -72 T Wave [place]: 137 EKG Severity - ABNORMAL ECG - EKG Impression: SINUS RHYTHM EKG Impression: PROBABLE LEFT ATRIAL ABNORMALITY EKG Impression: LVH with repolarization changes noted, unchanged from prior EKG Electronically Signed By: Doc Mai 07-Oct-2016 14:41:33
--- NOTE | 2016-10-07 14:28 | EDPHY ---
H & P Stated Complaint: Tripped,fell;hit head/chest/L hand;no LOC Time Seen by Provider: 10/07/16 14:00 HPI/ROS: CHIEF COMPLAINT: Mechanical fall, anterior chest pain, headache, recent neck surgery HISTORY OF PRESENT ILLNESS: The patient presents to the ED with complaints of anterior chest pain and a slight headache following a mechanical fall at home. She reportedly tripped while walking landing primarily on her sternum. The patient did have a history of spinal surgery approximately 1 week ago. She is currently immobilized in a cervical collar. The patient denies any loss of consciousness. She does complain of a moderate headache along the vertex of her scalp. The patient denies any dyspnea. The patient denies any acute complaints of neck pain, weakness or paresthesias. The patient is not anticoagulated. The patient reports her headache is a 2/10, her sternal pain is 4/10 and she has no acute neck pain but some degree of chronic neck pain following her surgery. REVIEW OF SYSTEMS: A comprehensive 10 point review of systems is otherwise negative aside from elements mentioned in the history of present illness. Source: Patient Exam Limitations: No limitations - Personal History Current Tetanus Diphtheria and Acellular Pertussis (TDAP): Yes - Medical/Surgical History Hx Asthma: No Hx Chronic Respiratory Disease: No Hx Diabetes: Yes Hx Cardiac Disease: Yes Hx Renal Disease: No Hx Cirrhosis: No Hx Alcoholism: No Hx HIV/AIDS: No Hx Splenectomy or Spleen Trauma: No Other PMH: rheumatic fever/htn/diabetic/breast cancer, double mastectomy; spine surg - Social History Smoking Status: Never smoked - Physical Exam Exam: General Appearance: Alert, no distress Head: Tenderness to palpation along the vertex of the scalp, hematoma noted to occipital scalp, overlying abrasion Eyes: Pupils equal, round, reactive ENT, Mouth: No hemotympanum, no oral trauma Neck: Currently in cervical spine collar, midline trachea noted Respiratory: Tenderness to palpation to the anterior sternum, no subcutaneous emphysema, lungs clear to auscultation bilaterally Cardiovascular: Regular rate and rhythm Abdomen: Abdomen is soft and nontender, pelvis stable Skin: No lacerations, No abrasion Back: No midline T/L/S pain Extremities: Tenderness to palpation, deformity noted to left 5th finger Neurological: A&Ox3, normal motor function, normal sensory exam Constitutional: Initial Vital Signs Temperature (C) 36.5 C 10/07/16 12:50 Heart Rate 56 L 10/07/16 12:50 Respiratory Rate 16 10/07/16 12:50 Blood Pressure 134/61 H 10/07/16 12:50 O2 Sat (%) 94 10/07/16 12:50 O2 Delivery Mode Room Air Allergies/Adverse Reactions: Penicillins Allergy (Verified 10/07/16 12:49) Hives Home Medications: Medication Instructions Recorded Doxycycline Monohydrate 100 mg PO DAILY 09/19/16 Exemestane [Aromasin] 25 mg PO DAILY 09/19/16 Fenofibrate [Tricor] 48 mg PO DAILY 09/19/16 Insulin Detemir [Levemir Flextouch] 48 - 51 unit SQ HS 09/19/16 Insulin Lispro [Humalog Kwikpen 15 - 35 units SQ TIDMEAL 09/19/16 U-100] Lisinopril [Zestril 40 mg (*)] 40 mg PO BID 09/19/16 Metoprolol Succinate Xr [Toprol Xl 100 mg PO DAILY 09/19/16 100 mg (*)] Simvastatin 20 mg PO HS 09/19/16 Spironolactone [Aldactone 25 MG 25 mg PO DAILY 09/19/16 (*)] metFORMIN HCL [Glucophage 500 mg 1,000 mg PO BID 09/19/16 (*)] Calcium Carbonate [Oyster Shell 500 mg PO DAILY 09/29/16 Calcium 500 mg (*)] Gabapentin [Neurontin 300 MG (*)] 300 mg PO BID 09/29/16 Herbals/Supplements -Info Only 1 each PO DAILY 09/29/16 Methocarbamol [Robaxin 750 mg (*)] 750 mg PO TID PRN #60 tab 10/02/16 oxyCODONE IR [Oxycodone Ir (*)] 5 - 10 mg PO Q4HRS PRN #90 tab 10/02/16 Medical Decision Making - Diagnostics EKG Interpretation: EKG: Complete interpretation has been separately recorded in the [facility] archive. Summary impression: Sinus rhythm, left ventricular hypertrophy, nonspecific ST-T wave changes noted. Imaging Results: Imaging Impressions Cervical Spine CT 10/07/16 14:00 Impression: 1. No acute fracture. 2. Well-seated new ACDF extending from C4 to C7. 3. If the patient has persistent pain or neurologic deficits, consider cervical spine MRI. Findings discussed with Emergency Department physician, Doc Mai on 10/07. Chest X-Ray 10/07/16 14:00 Impression: 1. No pneumothorax. 2. Poor inspiratory phase without definite acute pulmonary disease. Head CT 10/07/16 14:00 Impression: 1. Left parietal scalp laceration and small scalp hematoma. 2. No acute fracture or evidence of acute intracranial injury. Findings discussed with Emergency Department physician, Doc Mai, on October 07, 2016 at 1448 hours. Left hand x-ray: Fracture noted at the base of the 5th proximal phalanx. Images reviewed by myself. ED Course/Re-evaluation: The patient presents to the ED after mechanical fall. The patient complains primarily of anterior chest pain. She is noted to be hemodynamically stable. Her EKG demonstrates no evidence of acute ischemia. The patient was taken for a stat CT scan of the head and cervical spine given her complaints of headache and recent cervical spine surgery. Fortunately, CT scan of the head and cervical spine demonstrate no evidence of an acute injury. The patient's chest x-ray demonstrates no evidence of a rib fracture, pneumothorax or hemothorax. The patient underwent serial examinations in the ED by myself over 3 hour period. At 4:00 p.m. she was evaluated. She is neurologically intact. She is maintained in her cervical spine collar. She has only anterior chest wall tenderness consistent with a small contusion. The patient does have a fracture noted on her left 5th finger. It was treated with a aluminum foam splint and lalit taping to the adjacent finger. It may require further operative treatment by Orthopedic surgery. The patient has been referred to our on-call hand surgeon. At this point time I do feel the patient can be discharged home. The patient is comfortable with this disposition. She has pain medications at home. The patient does understand return to the ED for any worsening chest pain, difficulty breathing or other concerns. Differential Diagnosis: Differential diagnosis considered includes intracranial hemorrhage, cervical spine fracture, rib fracture, pneumothorax, hemothorax, arrhythmia Departure - Departure Disposition: Home, Routine, Self-Care Clinical Impression: Chest wall pain, History of fusion of cervical spine Scalp contusion Qualifiers: Encounter type: initial encounter Qualified Code(s): S00.03XA - Contusion of scalp, initial encounter Finger fracture, left Qualifiers: Encounter type: initial encounter Finger: little finger Fracture type: closed Phalanx: proximal Fracture alignment: displaced Qualified Code(s): S62.617A - Displaced fracture of proximal phalanx of left little finger, initial encounter for closed fracture Condition: Good Instructions: Chest Wall Pain (ED) Additional Instructions: 1. Please return to the emergency department for any worsening pain, difficulty breathing or other concerns. 2. Please follow-up with your neurosurgeon and primary care provider as scheduled. 3. Your CT demonstrate compromise of your surgical hardware repair or evidence of a head injury. 4. You do have a fracture of your left 5th finger which may require additional surgical repair. Please contact the orthopedic surgeon, Dr. Rafael Child, you have been referred to for a follow-up visit. Please contact his office tomorrow. Referrals: Doreen Coyne MD [Primary Care Provider] - As per Instructions Rafael Child MD [Medical Doctor] - As per Instructions
[2016-10-07 18:00] VITALS: BP 142/68; PULSE 68; O2SAT 97
== END 2016-10-07 18:00 | disposition home or self-care (01) ==
DX: S29.9XXA Unspecified injury of thorax, initial encounter (principal); S62.617A Displaced fracture of proximal phalanx of left little finger, initial encounter for closed fracture; S00.03XA Contusion of scalp, initial encounter; I10 Essential (primary) hypertension; E11.9 Type 2 diabetes mellitus without complications; Z98.1 Arthrodesis status; Z85.3 Personal history of malignant neoplasm of breast; Z79.4 Long term (current) use of insulin; Z79.84 Long term (current) use of oral hypoglycemic drugs; W01.198A Fall on same level from slipping, tripping and stumbling with subsequent striking against other object, initial encounter; Y92.009 Unspecified place in unspecified non-institutional (private) residence as the place of occurrence of the external cause; Y99.8 Other external cause status; Y93.01 Activity, walking, marching and hiking
CPT/HCPCS: 70450; 71020; 72125; 73140; 93005; 99285; L3925

== ENCOUNTER → 2016-11-04 | Outpatient (CLI) | payer OTHER, BC | LOC: BMCIMAGING 07:56 | PROVIDERS: ATTEND Orthopaedic Surgery | DX: S62.647D Nondisplaced fracture of proximal phalanx of left little finger, subsequent encounter for fracture with routine healing (principal) ==

== ENCOUNTER → 2016-11-11 | Outpatient (CLI) | payer OTHER, BC | LOC: FIMAGING 08:47 | PROVIDERS: ATTEND Physician Assistant Surgical | DX: Z09 Encounter for follow-up examination after completed treatment for conditions other than malignant neoplasm (principal); Z98.1 Arthrodesis status ==

== ENCOUNTER → 2016-12-02 | Outpatient (CLI) | payer OTHER, BC | LOC: BMCIMAGING 08:10 | PROVIDERS: ATTEND Orthopaedic Surgery | DX: S62.617D Displaced fracture of proximal phalanx of left little finger, subsequent encounter for fracture with routine healing (principal) ==

== ENCOUNTER → 2016-12-30 | Outpatient (CLI) | payer OTHER, BC | LOC: FIMAGING 09:45 | PROVIDERS: ATTEND Physician Assistant Surgical | DX: Z09 Encounter for follow-up examination after completed treatment for conditions other than malignant neoplasm (principal); Z98.1 Arthrodesis status ==

== ENCOUNTER → 2017-03-19 | Outpatient (CLI) | payer OTHER, BC | LOC: FIMAGING 08:30 | PROVIDERS: ATTEND Internal Medicine Hematology & Oncology | DX: N63.20 Unspecified lump in the left breast, unspecified quadrant (principal); Z85.3 Personal history of malignant neoplasm of breast ==

== ENCOUNTER → 2017-03-31 | Outpatient (CLI) | payer OTHER, BC ==
[~2017-03-31] MED LIST: BUPIVACAINE 0.5% 30 ML SDV ONE; LIDOCAINE 1% 300 MG/30 ML SDV ONE
== END ==
LOC: FIMAGING 07:13
PROVIDERS: ATTEND Internal Medicine Hematology & Oncology
PROC: 0HBU3ZX Excision of Left Breast, Percutaneous Approach, Diagnostic (ICD-10-PCS; principal; 2017-03-31)
DX: D24.2 Benign neoplasm of left breast (principal); Z85.3 Personal history of malignant neoplasm of breast; Z90.12 Acquired absence of left breast and nipple

== ENCOUNTER → 2017-04-07 | Outpatient (CLI) | payer OTHER, BC | LOC: FLAB 09:38 | PROVIDERS: ATTEND Physician Assistant Surgical | DX: Z98.1 Arthrodesis status (principal) ==

== ENCOUNTER → 2017-10-12 | Outpatient (CLI) | payer OTHER, BC | LOC: FIMAGING 13:31 | PROVIDERS: ATTEND Physician Assistant Surgical | DX: Z98.1 Arthrodesis status (principal); M47.22 Other spondylosis with radiculopathy, cervical region ==